=== PATIENT | female | born 1980 | race Caucasian/White ===

== ENCOUNTER 2018-12-29 03:58 | Emergency (ER) | payer OTHER ==
[~2018-12-29] VITALS: Ht 162.6 cm; Wt 56.7 kg
[~2018-12-29 03:58] MED LIST: ALBUTEROL2.5 MG/31; CLEOCIN HCL300 MG PO; HYDROXYZINE HCL50 MG PO; NORCO 5-325 TA1 EACH PO; ZOFRAN ODT4 MG PO; ZOLOFT100 MG PO
[2018-12-29] MEDS ORDERED: PREDNISONE 20 M20 M1 PO (04:17)
[2018-12-29] MEDS ORDERED: HYDROXYCHLOROQ200 M1 PO (04:17)
[2018-12-29] MEDS ORDERED: VENTOLIN HFA 1818 GM INH (04:17)
[2018-12-29] MEDS ORDERED: TRAZODONE HCL50 MG PO (04:18)
[2018-12-29] MEDS ORDERED: NEURONTIN 300300 M1 PO (04:18)
[2018-12-29 04:27] LABS: ABSOLUTE NEUTROPHILS 4.5 thou/uL (1.4-8.2); BASOPHILS 1.5 % (0.0-2.0); EOSINOPHILS 4.2 % (0.0-3.0); HEMATOCRIT 30.5 % (37.0-47.0); HEMOGLOBIN 9.6 gm/dL (12.0-15.0); LYMPHOCYTES 29.4 % (24.0-44.0); MCH 23.5 pg (26.0-34.0); MCHC 31.3 g/dL (28.0-37.0); MCV 74.9 fL (80.0-100.0); MONOCYTES 7.5 % (1.0-8.0); PLATELET COUNT 334 thou/uL (150-400); POLYS 57.4 % (36.0-66.0); RBC 4.07 mil/uL (4.20-5.00); RDW 16.7 % (10.5-14.5); WBC 7.8 thou/uL (4.0-11.0)
[2018-12-29 04:31] LABS: ANION GAP 11 mmol/L (7-16); BUN 15 mg/dL (7-18); CALCIUM 9.5 mg/dL (8.5-10.1); CHLORIDE 102 mmol/L (98-107); CO2 26 mmol/L (21-32); CREATININE 0.9 mg/dL (0.6-1.0); GLUCOSE 105 mg/dL (74-106); POTASSIUM 3.5 mmol/L (3.5-5.1); SODIUM 139 mmol/L (136-145)
[2018-12-29 04:31] LABS: URINE BILIRUBIN NEGATIVE (Negative); URINE BLOOD NEGATIVE (Negative); URINE CLARITY SL CLOUDY; URINE COLOR YELLOW; URINE GLUCOSE-RANDOM* NEGATIVE (Negative); URINE KETONES NEGATIVE (Negative); URINE LEUKOCYTES-REFLEX NEGATIVE (Negative); URINE NITRITE-REFLEX NEGATIVE (Negative); URINE PROTEIN (DIPSTICK) NEGATIVE (Negative); URINE SPECIFIC GRAVITY 1.025 (1.005-1.035); URINE UROBILINOGEN 0.2 E.U./dl (0.2-1.0)
[2018-12-29 04:41] LABS: LIPASE 171 U/L (73-393); SALICYLATE < 2.8 mg/dL (2.8-20.0); SGOT 51 U/L (15-37); SGPT 104 U/L (30-65); TOTAL BILIRUBIN 0.5 mg/dL (<0.1-1.0); TOTAL PROTEIN 7.8 g/dL (6.4-8.2); TROPONIN-I <0.06 ng/mL (<0.06)
[2018-12-29 04:42] LABS: AMP/METHAMP POSITIVE (Negative); BARBITURATES Negative (Negative); BENZODIAZEPINES Negative (Negative); COCAINE Negative (Negative); METHADONE Negative (Negative); OPIATES Negative (Negative); PCP Negative (Negative)
[2018-12-29 04:43] LABS: APTT 23.7 Seconds (24.5-32.8); PROTIME 9.6 Seconds (9.3-11.4)
[2018-12-29] MEDS ORDERED: ZOFRAN ODT4 MG DISSOLVE (04:47)
[2018-12-29 08:10] VITALS: BP 104/63
--- NOTE | 2018-12-29 08:58 | EKG ---
[address] [place] [address] ELECTROCARDIOGRAM REPORT Name: RACHELE TONY Room #: DEP Jasmina#: [id number] ������������������ Admission: 12/29/18 ������������������ Attend Phys: Discharge: 12/29/18 ������������������ Date of : 78 Report #: [id number] ����������������������������������������������������������������� [id number] THIS REPORT FOR: //name// [facility] ED Test Date: 2018-12-29 Test Time: 04:58:52 Pat Name: RACHELE TONY Department: Room: Gender: F Urology Nurse: codie : 1980 Requested By: Abraham Frederick Order Number: [id number] MD: Duong Whitley Measurements Intervals [place] Rate: 74 P: 61 ID: [id number] QRS: 33 QRSD: 94 T: 26 QT: 391 QTc: 434 Interpretive Statements Sinus rhythm Normal tracing No previous ECG available for comparison Electronically Signed On 12-29-2018 8:58:26 CDT by Duong Whitley [email or web address] ��������������������������������������������� <ELECTRONICALLY SIGNED> ���������������������������������������� By: Duong Whitley MD, [facility] ��������������������������������������������� 12/29/18 [id number] Duong Whitley MD, FACC /EPI
== END 2018-12-29 08:10 | disposition home or self-care (01) ==
LOC: ER 03:58
PROVIDERS: Emergency Medicine
DX: D50.8 Other iron deficiency anemias (principal); F15.10 Other stimulant abuse, uncomplicated; R11.2 Nausea with vomiting, unspecified; M32.9 Systemic lupus erythematosus, unspecified; Z59.0 Homelessness; Z88.2 Allergy status to sulfonamides; Z79.899 Other long term (current) drug therapy; Z98.890 Other specified postprocedural states